=== PATIENT | female | born 1975 | race Caucasian/White ===

== ENCOUNTER 2016-09-07 19:48 | Emergency (ER) | payer OTHER | END 2016-09-07 20:55 | disposition home or self-care (01) | LOC: D.ER 19:48 | DX: F15.980 Other stimulant use, unspecified with stimulant-induced anxiety disorder (principal); F17.200 Nicotine dependence, unspecified, uncomplicated; I10 Essential (primary) hypertension ==

== ENCOUNTER → 2018-01-14 19:34 | Outpatient (CLI) | payer MEDICAID | END | disposition home or self-care (01) | LOC: D.MAMMO 09:00 | DX: Z12.31 Encounter for screening mammogram for malignant neoplasm of breast (principal) ==

== ENCOUNTER 2018-05-14 07:45 | Emergency (ER) | payer MEDICAID ==
[~2018-05-14] VITALS: Ht 170.2 cm; Wt 162.3 kg
[2018-05-14 08:05] VITALS: Ht 170.2 cm; Wt 162.3 kg
[2018-05-14] MEDS ORDERED: MICARDIS80 MG PO (08:07)
[2018-05-14] MEDS ORDERED: GLUCOPHAGE500 MG PO (08:07)
[2018-05-14] MEDS ORDERED: PROAIR HFA8.5 GM (08:08)
[2018-05-14] MEDS ORDERED: NORVASC10 MG PO (08:09)
[2018-05-14 09:27] LABS: BASOPHILS 0.4 % (0-2); EOSINOPHILS 1.1 % (0-7); HEMATOCRIT 41.3 % (36.0-48.0); HEMOGLOBIN 13.6 g/dL (12-16); IMMATURE GRANULOCYTES 0.1 % (0-5); LYMPHOCYTES 18.2 % (15-50); MCH 30.4 pg (26.0-34.0); MCHC 32.9 g/dL (31.0-37.0); MCV 92.4 fL (80.0-100.0); MEAN PLATELET VOLUME 11.9 fL (7.4-10.4); MONOCYTES 5.8 % (2-11); NEUTROPHILS 74.4 % (40-80); PLATELET COUNT 204 10x3/uL (130-400); RBC 4.47 10x6/uL (4.00-5.40); RDW 13.9 % (11.5-14.5); WBC 7.4 10x3/uL (4.8-10.8)
[2018-05-14 09:37] LABS: ALBUMIN 3.1 g/dL (3.4-5.0); ALKALINE PHOSPHATASE 55 U/L (46-116); ALT (SGPT) 23 U/L (10-68); BILIRUBIN - TOTAL 0.26 mg/dL (0.2-1.3); CALC OSMOLALITY 276 mosm/kg (275-300); CALCIUM 10.1 mg/dL (8.5-10.1); CARBON DIOXIDE 29.7 mmol/L (21.0-32.0); CHLORIDE - SERUM 104 mmol/L (98-107); CREATININE - SERUM 0.6 mg/dL (0.6-1.3); GLUCOSE 149 mg/dL (74-106); POTASSIUM - SERUM 4.3 mmol/L (3.5-5.1); PROTEIN - SERUM 6.7 g/dL (6.4-8.2); SODIUM 137 mmol/L (136-145); UREA NITROGEN 13 mg/dL (7-18); eGFR NON AFRICAN AMERICAN > 90 mL/min (90-120)
[2018-05-14 09:49] LABS: CKMB 0.5 U/L (0.0-3.6); CREATINE KINASE 27 UL (21-215); TROPONIN-I < 0.017 ng/mL (0.000-0.060)
[2018-05-14 09:54] LABS: UDS - AMPHET NEGATIVE QUAL (NEGATIVE); UDS - BARB NEGATIVE QUAL (NEGATIVE); UDS - BENZO NEGATIVE QUAL (NEGATIVE); UDS - COCAINE NEGATIVE QUAL (NEGATIVE); UDS - OPIATE NEGATIVE QUAL (NEGATIVE); UDS - PCP NEGATIVE QUAL (NEGATIVE); UDS - THC POSITIVE QUAL (NEGATIVE)
[2018-05-14 10:23] LABS: APPEARANCE CLEAR (CLEAR); BILIRUBIN NEGATIVE (NEGATIVE); COLOR YELLOW (YELLOW); GLUCOSE NEGATIVE (NEGATIVE); KETONE NEGATIVE (NEGATIVE); NITRITE NEGATIVE (NEGATIVE); PROTEIN NEGATIVE (NEGATIVE); UROBILINOGEN NORMAL (NORMAL)
[2018-05-14 13:44] VITALS: BP 128/80
== END 2018-05-14 13:46 | disposition home or self-care (01) ==
LOC: D.ER 07:45
PROVIDERS: Emergency Medicine
DX: T46.1X1A Poisoning by calcium-channel blockers, accidental (unintentional), initial encounter (principal); Y92.019 Unspecified place in single-family (private) house as the place of occurrence of the external cause; E11.9 Type 2 diabetes mellitus without complications; I10 Essential (primary) hypertension; F17.200 Nicotine dependence, unspecified, uncomplicated

== ENCOUNTER 2019-01-18 10:44 | Emergency (ER) | payer OTHER ==
[~2019-01-18] VITALS: Ht 170.2 cm; Wt 181.4 kg
[~2019-01-18 10:44] MED LIST: GLUCOPHAGE500 MG PO; MICARDIS80 MG PO; NORVASC10 MG PO; PROAIR HFA8.5 GM
[2019-01-18 10:45] VITALS: Ht 170.2 cm; Wt 181.4 kg
[2019-01-18 11:22] LABS: BASOPHILS 0.3 % (0-2); EOSINOPHILS 1.2 % (0-7); HEMATOCRIT 38.4 % (36.0-48.0); HEMOGLOBIN 12.7 g/dL (12-16); IMMATURE GRANULOCYTES 0.1 % (0-5); LYMPHOCYTES 23.1 % (15-50); MCH 29.7 pg (26.0-34.0); MCHC 33.1 g/dL (31.0-37.0); MCV 89.7 fL (80.0-100.0); MEAN PLATELET VOLUME 11.1 fL (7.4-10.4); NEUTROPHILS 69.3 % (40-80); PLATELET COUNT 208 10x3/uL (130-400); RBC 4.28 10x6/uL (4.00-5.40); RDW 14.9 % (11.5-14.5); WBC 7.5 10x3/uL (4.8-10.8)
[2019-01-18 11:35] LABS: ALBUMIN 3.1 g/dL (3.4-5.0); ALKALINE PHOSPHATASE 63 U/L (46-116); ALT (SGPT) 20 U/L (10-68); BILIRUBIN - TOTAL 0.31 mg/dL (0.2-1.3); CALC OSMOLALITY 281 mosm/kg (275-300); CALCIUM 9.5 mg/dL (8.5-10.1); CARBON DIOXIDE 26.5 mmol/L (21.0-32.0); CHLORIDE - SERUM 106 mmol/L (98-107); CREATININE - SERUM 0.7 mg/dL (0.6-1.3); GLUCOSE 122 mg/dL (74-106); POTASSIUM - SERUM 4.4 mmol/L (3.5-5.1); PROTEIN - SERUM 6.7 g/dL (6.4-8.2); SODIUM 139 mmol/L (136-145); UREA NITROGEN 20 mg/dL (7-18); eGFR NON AFRICAN AMERICAN > 90 mL/min (90-120)
[2019-01-18 11:51] LABS: APTT 25.2 SECONDS (22.8-39.4); INR 1.09 (0.85-1.17); PROTIME 13.6 SECONDS (11.6-15.0)
[2019-01-18 12:55] LABS: HCG URINE NEGATIVE (NEGATIVE)
[2019-01-18] MEDS ORDERED: ULTRAM50 MG PO (13:15)
[2019-01-18 13:17] LABS: APPEARANCE CLOUDY (CLEAR); BACTERIA FEW /hpf (NONE SEEN); BILIRUBIN NEGATIVE (NEGATIVE); COLOR RED (YELLOW); EPITHELIAL CELLS OCC /hpf (0-5); GLUCOSE NEGATIVE (NEGATIVE); KETONE NEGATIVE (NEGATIVE); MUCUS <1+ /lpf (NONE SEEN); NITRITE NEGATIVE (NEGATIVE); PROTEIN 1+ mg/dL (NEGATIVE); RED CELLS - URINE >50 /hpf (0-5); SPECIFIC GRAVITY 1.015 (1.005-1.020); UROBILINOGEN NORMAL (NORMAL); WHITE CELLS - URINE OCC /hpf (0-5)
[2019-01-18 14:06] VITALS: BP 136/74
[2019-02-09] MEDS ORDERED: COZAAR100 MG PO (11:02)
[2019-02-09] MEDS ORDERED: FLUTICASONE PRO16 GM NASAL (11:03)
[2019-02-09] MEDS ORDERED: BUT/APAP/CAF CAP PO (11:04)
[2019-02-09] MEDS ORDERED: ATARAX 25 MG TA25 MG PO (11:05)
[2019-02-09] MEDS ORDERED: TENORMIN25 MG PO (11:06)
== END 2019-01-18 14:07 | disposition home or self-care (01) ==
LOC: D.ER 10:44
PROVIDERS: Emergency Medicine
DX: N93.9 Abnormal uterine and vaginal bleeding, unspecified (principal)

== ENCOUNTER 2019-02-11 06:10 | Day surgery (SDC) | payer OTHER ==
[2019-02-09 11:49] LABS: BASOPHILS 0.4 % (0-2); EOSINOPHILS 1.5 % (0-7); HEMATOCRIT 39.7 % (36.0-48.0); HEMOGLOBIN 13.4 g/dL (12-16); IMMATURE GRANULOCYTES 0.1 % (0-5); LYMPHOCYTES 22.9 % (15-50); MCHC 33.8 g/dL (31.0-37.0); MCV 88.8 fL (80.0-100.0); MEAN PLATELET VOLUME 11.6 fL (7.4-10.4); MONOCYTES 7.4 % (2-11); NEUTROPHILS 67.7 % (40-80); PLATELET COUNT 218 10x3/uL (130-400); RBC 4.47 10x6/uL (4.00-5.40); RDW 14.2 % (11.5-14.5); WBC 7.3 10x3/uL (4.8-10.8)
[~2019-02-11] VITALS: Ht 170.2 cm; Wt 154.2 kg
[~2019-02-11 06:10] MED LIST changes: +ATARAX 25 MG TA25 MG PO; +BUT/APAP/CAF CAP PO; +COZAAR100 MG PO; +FLUTICASONE PRO16 GM NASAL; +TENORMIN25 MG PO; +ULTRAM50 MG PO
[2019-02-11] MEDS ORDERED: EFFEXOR37.5 MG PO (06:38)
[2019-02-11] MEDS ORDERED: KLONOPIN1 MG PO (06:39)
[2019-02-11 07:07] VITALS: BP 140/82; Ht 170.2 cm; Wt 154.2 kg
[2019-02-11 07:24] LABS: HCG URINE NEGATIVE (NEGATIVE)
--- NOTE | 2019-02-11 08:15 | NUR ---
DR. CASTRO NOTIFIED AND REVIEWED PATIENT'S BEHVIOR AND ASSESSMENT RESULTS. PT. IS A LOW RISK PER DR. CASTRO. DR. CASTRO STATED TO GIVE RESOURCES TO PATIENT. NO FURTHER ORDERS AT THIS TIME. RESOURCES REVIEWED WITH PT. AND SHE VERBALIZES UNDERSTANDING.
--- NOTE | 2019-02-11 12:37 | NUR ---
1230 PT REQUESTED A RX FOR VALIUM BECAUSE THE MEDICATION SHE HAD THIS MORNING REALLY HELPED HER ANXIETY. INSTRUCTED HER TO TALK WITH HER PRIMARY DOCTOR. INSTRUCTIONS GIVEN TO PT AND PT HAS A 2 W[address] APT SET[address] CANO HERE TO TALK TO PT AND FAMILY
--- NOTE | 2019-02-25 12:17 | OP ---
PATIENT NAME: МАРИЯ TABOR MEDICAL RECORD: [id number] :73 LOCATION:[facility] ADMISSION DATE: SURGEON: JUAREZ CANO DO DATE OF OPERATION: 02/11/2019 PREOPERATIVE DIAGNOSIS: Abnormal uterine bleeding. POSTOPERATIVE DIAGNOSIS: Abnormal uterine bleeding. PRIMARY SURGEON: Juarez Cano DO OFFICE ASSOCIATE SURGEON: Not applicable. ANESTHESIA: Juan Daniel Montgomery CRNA PROCEDURE: Hysteroscopy, dilation and curettage. FINDINGS: Normal appearing external genitalia, normal appearing vaginal vault, 10 cm anteverted uterus, proliferative endometrium, possible endometrial polyp. SPECIMENS: Endometrial curettings. ESTIMATED BLOOD LOSS: Minimal. INTRAVENOUS FLUIDS: 400 cc. COMPLICATIONS: None. CONDITION: Stable. DESCRIPTION OF PROCEDURE: The risks, benefits, alternatives, and indications of the procedure were discussed with the patient. She voiced understanding of the procedure and signed a consent. She was taken to the OR where general anesthesia was administered and found to be adequate. She was placed in the dorsal lithotomy position. She was prepped and draped in the normal sterile fashion. A speculum was placed in the posterior aspect of the vagina. Single tooth tenaculum was used to grasp the anterior lip of the cervix. The cervix was dilated to accommodate the sound. Uterus was sounded to 10 cm. Cervix was further dilated to accommodate hysteroscope. The hysteroscope was inserted into the uterus and a proliferative endometrium was noted with a possible endometrial polyp posteriorly. The hysteroscope was removed and the cervix was further dilated to accommodate a sharp curette. A gentle sharp curettage was performed and endometrial curettings were sent to pathology. The tenaculum was removed. The tenaculum site was noted to be hemostatic. All instruments were removed from the vagina. All lap, sponge, and instrument counts were correct times 2. The patient tolerated the procedure well. She was awakened and taken to recovery room in stable condition. TRANSINT:[id number] Voice Confirmation ID: [id number] DOCUMENT ID: [id number] OPERATIVE REPORT [id number] МАРИЯ TABOR JUAREZ CANO DO at 1217 CC: [id number] DICTATION DATE: 02/11/19 1132 [employer] WORKER: 02/11/19 1157 [facility] 02/11/19 [facility] [address] [place] [place] [address]
== END 2019-02-11 13:24 | disposition home or self-care (01) ==
LOC: D.OPS 06:10 → D.PAN 08:30 → D.OPS 13:24
PROVIDERS: ATTEND Student in an Organized Health Care Education/Training Program
DX: N93.8 Other specified abnormal uterine and vaginal bleeding (principal); N85.4 Malposition of uterus; Z01.812 Encounter for preprocedural laboratory examination; E66.01 Morbid (severe) obesity due to excess calories

== ENCOUNTER 2019-06-27 14:09 | Emergency (ER) | payer MEDICAID ==
[~2019-06-27 14:09] MED LIST changes: +EFFEXOR37.5 MG PO; +KLONOPIN1 MG PO
[2019-06-27 14:13] VITALS: Ht 170.2 cm
[2019-06-27] MEDS ORDERED: ZITHROMAX500 MG PO (15:25)
[2019-06-27 15:43] LABS: BASOPHILS 0.1 % (0-2); EOSINOPHILS 0.1 % (0-7); HEMATOCRIT 45.1 % (36.0-48.0); HEMOGLOBIN 14.7 g/dL (12-16); IMMATURE GRANULOCYTES 0.4 % (0-5); LYMPHOCYTES 8.3 % (15-50); MCH 30.4 pg (26.0-34.0); MCHC 32.6 g/dL (31.0-37.0); MCV 93.2 fL (80.0-100.0); MEAN PLATELET VOLUME 11.8 fL (7.4-10.4); MONOCYTES 2.5 % (2-11); NEUTROPHILS 88.6 % (40-80); PLATELET COUNT 254 10x3/uL (130-400); RBC 4.84 10x6/uL (4.00-5.40); RDW 14.4 % (11.5-14.5); WBC 14.2 10x3/uL (4.8-10.8)
[2019-06-27 15:54] LABS: ANION GAP 9.8 mmol/L (8-16); CALCIUM 10.1 mg/dL (8.5-10.1); CARBON DIOXIDE 28.8 mmol/L (21.0-32.0); POTASSIUM - SERUM 4.6 mmol/L (3.5-5.1)
[2019-06-27 16:01] LABS: ALBUMIN 3.1 g/dL (3.4-5.0); BILIRUBIN - TOTAL 0.25 mg/dL (0.2-1.3); PROTEIN - SERUM 6.6 g/dL (6.4-8.2)
[2019-06-27] MEDS ORDERED: BENADRYL50 MG PO (16:45)
[2019-06-27] MEDS ORDERED: EPIPEN 2-P0.3 MG/0.3 IM (16:45)
[2019-06-27 16:51] VITALS: BP 142/88
== END 2019-06-27 16:55 | disposition home or self-care (01) ==
LOC: D.ER 14:09
PROVIDERS: Emergency Medicine
DX: R06.02 Shortness of breath (principal); T50.905A Adverse effect of unspecified drugs, medicaments and biological substances, initial encounter; Y92.9 Unspecified place or not applicable; E11.9 Type 2 diabetes mellitus without complications; I10 Essential (primary) hypertension; Z79.84 Long term (current) use of oral hypoglycemic drugs; Z72.0 Tobacco use

== ENCOUNTER 2019-08-31 13:19 | Emergency (ER) | payer MEDICAID ==
[~2019-08-31] VITALS: Ht 170.2 cm; Wt 181.8 kg
[~2019-08-31 13:19] MED LIST changes: +BENADRYL50 MG PO; +EPIPEN 2-P0.3 MG/0.3 IM; +ZITHROMAX500 MG PO
[2019-08-31 13:39] VITALS: BP 172/113; Ht 170.2 cm; Wt 181.8 kg
[2019-08-31] MEDS ORDERED: ACETAMINOPHEN500 M1 PO (14:58)
[2019-08-31] MEDS ORDERED: CYCLOBENZAPRINE10 MG PO (14:58)
[2019-08-31] MEDS ORDERED: IBUPROFEN800 MG PO (14:58)
== END 2019-08-31 15:06 | disposition home or self-care (01) ==
LOC: D.ER 13:19
DX: M54.5 Low back pain (principal); W01.0XXA Fall on same level from slipping, tripping and stumbling without subsequent striking against object, initial encounter; I10 Essential (primary) hypertension; E11.9 Type 2 diabetes mellitus without complications; Z79.84 Long term (current) use of oral hypoglycemic drugs

== ENCOUNTER 2019-09-10 15:31 | Emergency (ER) | payer MEDICAID ==
[~2019-09-10] VITALS: Ht 170.2 cm; Wt 159.1 kg
[~2019-09-10 15:31] MED LIST changes: +ACETAMINOPHEN500 M1 PO; +CYCLOBENZAPRINE10 MG PO; +IBUPROFEN800 MG PO
[2019-09-10 15:32] VITALS: Ht 170.2 cm; Wt 159.1 kg
[2019-09-10] MEDS ORDERED: ARTHROTEC EC 71 EACH PO (17:00)
[2019-09-10 17:36] VITALS: BP 144/82
== END 2019-09-10 17:37 | disposition home or self-care (01) ==
LOC: D.ER 15:31
DX: M47.816 Spondylosis without myelopathy or radiculopathy, lumbar region (principal); M47.817 Spondylosis without myelopathy or radiculopathy, lumbosacral region; M54.5 Low back pain; E11.9 Type 2 diabetes mellitus without complications; I10 Essential (primary) hypertension

== ENCOUNTER 2019-12-25 08:32 | Emergency (ER) | payer MEDICAID ==
[~2019-12-25] VITALS: Ht 170.2 cm; Wt 195.5 kg
[~2019-12-25 08:32] MED LIST changes: +ARTHROTEC EC 71 EACH PO
[2019-12-25 08:37] VITALS: Ht 170.2 cm; Wt 195.5 kg
[2019-12-25 09:00] LABS: BILIRUBIN NEGATIVE (NEGATIVE); GLUCOSE NEGATIVE (NEGATIVE); KETONE NEGATIVE (NEGATIVE); NITRITE NEGATIVE (NEGATIVE); SPECIFIC GRAVITY 1.015 (1.005-1.020); UROBILINOGEN NORMAL (NORMAL)
[2019-12-25 09:03] LABS: BACTERIA FEW /hpf (NEGATIVE); EPITHELIAL CELLS 0-5 /hpf (0-5); RED CELLS - URINE 0-5 /hpf (0-5); WHITE CELLS - URINE 0-5 /hpf (NEGATIVE)
[2019-12-25 09:04] LABS: TALC POWDER CRYSTALS 0-5 /hpf (NONE SEEN)
[2019-12-25] MEDS ORDERED: NORFLEX100 MG PO (11:29)
[2019-12-25 12:10] VITALS: BP 154/76
== END 2019-12-25 12:10 | disposition home or self-care (01) ==
LOC: D.ER 08:32
PROVIDERS: Family Medicine
DX: M25.552 Pain in left hip (principal); M16.10 Unilateral primary osteoarthritis, unspecified hip; I10 Essential (primary) hypertension; Z72.0 Tobacco use; E11.9 Type 2 diabetes mellitus without complications; Z79.84 Long term (current) use of oral hypoglycemic drugs; M54.5 Low back pain